=== PATIENT | male | born 1995 | race Caucasian/White ===

== ENCOUNTER 2021-12-27 23:43 | Inpatient (IN) | payer MEDICAID, OTHER ==
[~2021-12-27] VITALS: Ht 172.7 cm; Wt 59.1 kg
[~2021-12-27 23:43] MED LIST: OLAN5TAB52 PO
[2021-12-28 01:15] LABS: BASOPHILS % (AUTO) 0.9 % (0.0-2.0); EOSINOPHILS % (AUTO) 0.5 % (1.0-6.0); HEMOGLOBIN 15.5 g/dL (13.5-17.5); LYMPHOCYTES # (AUTO) 1.5 K/uL (1.0-4.8); LYMPHOCYTES % (AUTO) 15.5 % (22.0-44.0); MEAN CORPUSCULAR HEMOGLOBIN 32.7 pg (26.0-34.0); MEAN CORPUSCULAR HGB CONC 35.2 G/dL (31.0-37.0); MEAN CORPUSCULAR VOLUME 93 fL (80-100); MONOCYTES # (AUTO) 0.6 K/uL (0.1-1.0); NEUTROPHILS # (AUTO) 7.2 K/uL (1.8-7.7); NEUTROPHILS % (AUTO) 77.1 % (40.0-70.0); PLATELET COUNT (AUTO) 306 K/uL (150-450); RED BLOOD CELL COUNT(AUTO) 4.73 MIL/uL (4.50-5.90); RED CELL DISTRIBUTION WIDTH 12.6 % (11.5-14.5)
[2021-12-28 01:25] LABS: ANION GAP 12 mmol/L (8-16); CALCIUM, TOTAL 8.5 mg/dL (8.8-10.5); CARBON DIOXIDE 28 mmol/L (22-29); CHLORIDE 105 mmol/L (98-107); CREATININE 0.83 mg/dL (0.60-1.30); GLOMERULAR FILTR. RATE CALC > 60 mL/min (>60); GLUCOSE,RANDOM 87 mg/dL (70-110); POTASSIUM 3.7 mmol/L (3.5-5.1); SODIUM SERUM 145 mmol/L (136-145); UREA NITROGEN, BLOOD 9 mg/dL (7-18)
[2021-12-28 01:31] LABS: ALANINE AMINOTRANSFERASE 14 U/L (12-78); ALBUMIN 4.5 g/dL (3.4-5.0); ALKALINE PHOSPHATASE 68 U/L (46-116); ASPARTATE AMINOTRANSFERASE 17 U/L (15-37); BILIRUBIN,TOTAL 0.4 mg/dL (0.1-1.0); TOTAL PROTEIN, SERUM 8.1 g/dL (6.4-8.2)
[2021-12-28 02:00] LABS: COVID AG,FIA SOURCE NASOPHARYNGEAL
[2021-12-28] MEDS ORDERED: SODIUM CHLORIDE 0.9% 250 ML IRRIG SOLUTION BOTTLE IRRIG ONE (02:00)
[2021-12-28] MEDS ORDERED: ZOLPIDEM TARTRATE 10 MG TABLET PO PRN (02:15)
[2021-12-28 18:22] VITALS: BP 148/91
[2021-12-28] MEDS: HALOPERIDOL 5 MG TABLET PO PRN (20:41)
[2021-12-28] MEDS: LORazepam 2 MG TABLET PO PRN (20:41)
[2021-12-29] MEDS ORDERED: LOPERAMIDE HCL 2 MG CAPSULE PO PRN (06:45)
[2021-12-29] MEDS ORDERED: ONDANSETRON HCL 4 MG TABLET PO PRN (06:45)
[2021-12-29] MEDS ORDERED: NICOTINE 14 MG/24 HOUR PATCH TD PRN (06:45)
[2021-12-29] MEDS ORDERED: PETROLATUM,WHITE 28 GM JELLY TP PRN (06:45)
[2021-12-29] MEDS ORDERED: MAGNESIUM HYDROXIDE SUSPENSION 30 ML UDCUP PO PRN (06:45)
[2021-12-29] MEDS ORDERED: MAG HYDROX/AL HYDROX/SIMETH ES 30 ML SUSPENSION UDCUP PO PRN (06:45)
[2021-12-29] MEDS ORDERED: ALBUTEROL SULFATE HFA 90 MCG/PUFF 8 GM INHALER IH PRN (06:45)
[2021-12-29] MEDS ORDERED: IBUPROFEN 400 MG TABLET PO PRN (06:45)
[2021-12-29] MEDS ORDERED: DOCUSATE SODIUM 100 MG CAPSULE PO PRN (06:45)
[2021-12-29] MEDS ORDERED: GuaiFENesin/D-METHORPHAN [SUGAR-FREE] 200-20MG/10 ML SYRUP UDCUP PO PRN (06:45)
[2021-12-29] MEDS ORDERED: CloNIDine HCL 0.1 MG TABLET PO PRN (06:45)
[2021-12-29] MEDS ORDERED: ACETAMINOPHEN 325 MG TABLET PO PRN (06:45)
[2021-12-29 08:19] VITALS: BP 113/79
[2021-12-29] MEDS: OLANZapine 5 MG TABLET PO SCH ×2 (12:29→20:11)
[2021-12-29] MEDS: BACITRACIN 28 GM OINTMENT TP SCH ×2 (12:29→16:38)
[2021-12-29 16:47] VITALS: BP 125/82
[2021-12-30] MEDS: OLANZapine 5 MG TABLET PO SCH ×2 (08:09→20:47)
[2021-12-30] MEDS: BACITRACIN 28 GM OINTMENT TP SCH ×2 (08:09→16:35)
[2021-12-30 08:28] VITALS: BP 122/76
[2021-12-30 16:28] VITALS: BP 119/66
[2021-12-30] MEDS: LORazepam 2 MG TABLET PO PRN (16:35)
[2021-12-30] MEDS: HALOPERIDOL 5 MG TABLET PO PRN (16:35)
[2021-12-31] MEDS: BACITRACIN 28 GM OINTMENT TP SCH ×2 (08:05→16:30)
[2021-12-31] MEDS: OLANZapine 5 MG TABLET PO SCH (08:05)
[2021-12-31] MEDS: LORazepam 2 MG TABLET PO PRN (08:23)
[2021-12-31 09:31] VITALS: BP 127/89
[2021-12-31 16:01] VITALS: BP 109/71
== END 2021-12-31 18:01 | disposition left against medical advice (07) | DRG 750 ==
LOC: EMS 23:47 → 3EC 12-28 17:05
PROVIDERS: ADMIT Psychiatry & Neurology Psychiatry; ATTEND Psychiatry & Neurology Psychiatry
DX: F20.0 Paranoid schizophrenia (principal); R45.851 Suicidal ideations; F43.10 Post-traumatic stress disorder, unspecified; S60.511A Abrasion of right hand, initial encounter; F10.10 Alcohol abuse, uncomplicated; F32.A Depression, unspecified; Z20.822 Contact with and (suspected) exposure to COVID-19; X58.XXXA Exposure to other specified factors, initial encounter; Y93.89 Activity, other specified; Y92.89 Other specified places as the place of occurrence of the external cause; Y99.8 Other external cause status; Z79.899 Other long term (current) drug therapy
CPT/HCPCS: 80053; 85025; 99285; G0480

== ENCOUNTER 2024-03-07 08:56 | Emergency (ER) | payer MEDICAID, OTHER ==
[~2024-03-07] VITALS: Ht 172.7 cm; Wt 59.1 kg
[2024-03-07 09:06] VITALS: BP 121/59; PULSE 94; RESP 20; TEMP 98.7
[2024-03-07] MEDS: MAG HYDROX/ALUMINUM HYD/SIMETH 30 ML SUSPENSION UDCUP PO ONE (09:32)
[2024-03-07] MEDS: ONDANSETRON HCL 4 MG TABLET PO ONE (09:32)
[2024-03-07] MEDS: FAMOTIDINE 20 MG TABLET PO ONE (09:32)
[2024-03-07 09:40] LABS: BASOPHILS % (AUTO) 0.3 % (0.0-2.0); EOSINOPHILS % (AUTO) 0.9 % (1.0-6.0); HEMATOCRIT 38.4 % (41-53); HEMOGLOBIN 13.3 g/dL (13.5-17.5); LYMPHOCYTES # (AUTO) 0.5 K/uL (1.0-4.8); LYMPHOCYTES % (AUTO) 4.5 % (22.0-44.0); MEAN CORPUSCULAR HEMOGLOBIN 32.8 pg (26.0-34.0); MEAN CORPUSCULAR HGB CONC 34.6 G/dL (31.0-37.0); MEAN CORPUSCULAR VOLUME 95 fL (80-100); MONOCYTES # (AUTO) 0.3 K/uL (0.1-1.0); MONOCYTES % (AUTO) 2.2 % (2.0-9.0); PLATELET COUNT (AUTO) 399 K/uL (150-450); RED BLOOD CELL COUNT(AUTO) 4.05 MIL/uL (4.50-5.90); RED CELL DISTRIBUTION WIDTH 12.7 % (11.5-14.5)
[2024-03-07 09:45] LABS: ANION GAP 14 mmol/L (8-16); CALCIUM, TOTAL 8.9 mg/dL (8.8-10.5); CARBON DIOXIDE 24 mmol/L (22-29); CHLORIDE 96 mmol/L (98-107); CREATININE 0.94 mg/dL (0.60-1.30); GLOMERULAR FILTR. RATE CALC > 60 mL/min (>60); GLUCOSE,RANDOM 108 mg/dL (70-110); NEUTROPHILS % (AUTO) 92.1 % (40.0-70.0); POTASSIUM 3.4 mmol/L (3.5-5.1); SODIUM SERUM 134 mmol/L (136-145); UREA NITROGEN, BLOOD 6 mg/dL (7-18)
[2024-03-07 09:47] LABS: LIPASE 18 U/L (16-77)
[2024-03-07 09:52] LABS: ALBUMIN 2.9 g/dL (3.4-5.0); BILIRUBIN,DIRECT 0.5 mg/dL (0.00-0.20); TOTAL PROTEIN, SERUM 8.2 g/dL (6.4-8.2)
[2024-03-07 10:02] LABS: RBC MORPHOLOGY COMMENT NORMAL RBC MORPH
[2024-03-07] MEDS ORDERED: ONDA-104 PO (10:26)
== END 2024-03-07 12:42 | disposition home or self-care (01) ==
LOC: EMS 08:56
DX: R11.2 Nausea with vomiting, unspecified (principal); F20.9 Schizophrenia, unspecified
CPT/HCPCS: 99284; 80048; 80076; 83690; 85025; 36415; Q0162

== ENCOUNTER 2025-02-01 21:57 | Emergency (ER) | payer OTHER ==
[~2025-02-01] VITALS: Ht 172.7 cm; Wt 65.9 kg
[~2025-02-01 21:57] MED LIST changes: -OLAN5TAB52 PO; +ONDA-104 PO
[2025-02-01 22:46] VITALS: BP 117/73; PULSE 87; RESP 16; TEMP 98.2; O2SAT 98
[2025-02-01 23:58] LABS: PLATELET COUNT (AUTO) 347 K/uL (150-450); RED BLOOD CELL COUNT(AUTO) 4.60 MIL/uL (4.50-5.90); RED CELL DISTRIBUTION WIDTH 12.7 % (11.5-14.5); WHITE BLOOD COUNT (AUTO) 5.9 K/uL (4.5-11.0)
[2025-02-02 00:04] LABS: CALCIUM, TOTAL 8.4 mg/dL (8.8-10.5); CREATININE 0.75 mg/dL (0.60-1.30); GLOMERULAR FILTR. RATE CALC > 60 mL/min (>60); GLUCOSE,RANDOM 92 mg/dL (70-110); SODIUM SERUM 143 mmol/L (136-145); UREA NITROGEN, BLOOD 9 mg/dL (7-18)
[2025-02-02 02:41] LABS: COVID AG,FIA SOURCE NASAL SWAB
[2025-02-02 02:54] LABS: SARS-COV2 (COVID) ANTIGEN,FIA Negative (Negative)
[2025-02-02 02:55] LABS: APPEARANCE,URINE CLEAR (CLEAR); GLUCOSE, URINE (UA) NEGATIVE (NEGATIVE); LEUKOCYTE ESTERASE ,URINE NEGATIVE (NEGATIVE); NITRATE,URINE NEGATIVE (NEGATIVE); OCCULT BLOOD,URINE NEGATIVE (NEGATIVE); PH,URINE DRUG SCREEN 6.0 (5.0-8.0); SPECIFIC GRAVITIY, URINE 1.018 (1.003-1.030)
[2025-02-02 03:04] LABS: ALCOHOL, URINE DRUG SCREEN POSITIVE (NEGATIVE); AMPHET/METH SCREEN,URINE NEGATIVE (NEGATIVE); BARBITURATE SCREEN, URINE NEGATIVE (NEGATIVE); CANNABINOID SCREEN,URINE POSITIVE (NEGATIVE); COCAINE SCREEN,URINE NEGATIVE (NEGATIVE); METHADONE SCREEN, URINE NEGATIVE (NEGATIVE)
== END 2025-02-02 08:50 | disposition home or self-care (01) ==
LOC: EMS 21:58
DX: F20.0 Paranoid schizophrenia (principal); F10.10 Alcohol abuse, uncomplicated; F12.90 Cannabis use, unspecified, uncomplicated; F17.210 Nicotine dependence, cigarettes, uncomplicated; Z20.822 Contact with and (suspected) exposure to COVID-19; Y90.6 Blood alcohol level of 120-199 mg/100 ml
CPT/HCPCS: 99285; 87426; 80048; 81003; 85025; 36415; 80307; G0480